=== PATIENT | female | born 1970 | race Two or more races ===

== ENCOUNTER 2019-01-04 22:44 | Emergency (ER) | payer MEDICAID ==
[~2019-01-04] VITALS: Ht 154.9 cm; Wt 88.0 kg
[~2019-01-04 22:44] MED LIST: METF-440 PO
[2019-01-04 23:59] VITALS: BP 92/53
--- NOTE | 2019-01-05 | NUR ---
PT BIBF. C/O "A DOOR FELL ON MY HEAD YESTERDAY, BEEN HAVING A HEADACHE SINCE THEN" -KO AOX4. AMBULATORY VSS. -SOB NOTED.
== END 2019-01-05 03:17 | disposition home or self-care (01) ==
LOC: ER 22:44
DX: M54.2 Cervicalgia (principal); R51 Headache; F17.200 Nicotine dependence, unspecified, uncomplicated; E11.9 Type 2 diabetes mellitus without complications; Z98.890 Other specified postprocedural states; Z88.0 Allergy status to penicillin
CPT/HCPCS: 70450-TC; 72125-TC

== ENCOUNTER 2019-08-12 15:12 | Emergency (ER) | payer MEDICAID ==
[~2019-08-12] VITALS: Ht 157.5 cm; Wt 81.6 kg
--- NOTE | 2019-08-12 15:18 | NUR ---
Pt bib self c/o vaginal bleeeding x 4 days s/p cervical biopsy 4 days ago, pt is aaox4, not in respiratory distress, hooked to monitor, kept rested and comfortable, will continue to monitor.
--- NOTE | 2019-08-12 15:28 | NUR ---
PT SEEN AND EXAMINED BY LINK ELIZABETH NP.
[2019-08-12] MEDS ORDERED: ONDANSETRON HCL/PF 4 MG/2 ML VIAL IVP ONE (15:30)
[2019-08-12] MEDS ORDERED: IV NS 0.9% 1,000 ML BAG IV ONE (15:30)
--- NOTE | 2019-08-12 15:42 | NUR ---
TECH AT BEDSIDE FOR US.
--- NOTE | 2019-08-12 16:00 | NUR ---
IV LINE ESTABLISHED, BLOOD DRAWN AND SENT TO LAB.
[2019-08-12] MEDS ORDERED: ONDANSETRON HCL/PF 4 MG/2 ML VIAL ONE (16:01)
[2019-08-12 16:03] LABS: BASOPHILS # (AUTO) 0.1 /CMM (0.0-0.2); BASOPHILS % (AUTO) 0.7 % (0.0-2.0); EOSINOPHILS % (AUTO) 4.5 % (0.0-6.0); HEMATOCRIT 41 % (33-45); HEMOGLOBIN 13.1 g/dL (11.5-14.8); LYMPHOCYTES # (AUTO) 2.8 /CMM (0.8-4.8); LYMPHOCYTES % (AUTO) 23.5 % (20.0-44.0); MEAN CORPUSCULAR HGB CONC 32 g/dl (31.0-36.0); MEAN CORPUSCULAR VOLUME 80 fL (82-100); MONOCYTES # (AUTO) 0.7 /CMM (0.1-1.30); MONOCYTES % (AUTO) 6.2 % (2.0-12.0); NEUTROPHILS # (AUTO) 7.8 /CMM (1.8-8.9); NEUTROPHILS % (AUTO) 65.1 % (43.0-81.0); PLATELET COUNT (AUTO) 333 /CMM (150-450); RED BLOOD CELL COUNT(AUTO) 5.11 MIL/uL (4.0-5.2)
[2019-08-12 16:07] LABS: APPEARANCE,URINE Clear (CLEAR); BILIRUBIN,URINE Negative (NEGATIVE); BLOOD, URINE Large Ery/uL (NEGATIVE); COLOR,URINE Yellow (YELLOW); KETONES,URINE Trace (NEGATIVE); LEUKOCYTE ESTERASE ,URINE Negative (NEGATIVE); NITRITE, URINE Negative (NEGATIVE); PH,URINE 5.5 (5.0-8.0); PROTEIN,URINE Trace mg/dl (NEGATIVE); UGLUCOSE Negative (NEGATIVE)
[2019-08-12 16:10] LABS: CALCIUM, SERUM 9.7 mg/dL (8.5-10.1); CREATININE 0.8 mg/dL (0.6-1.3); POTASSIUM 3.4 mmol/L (3.5-5.1)
[2019-08-12 16:34] LABS: BACTERIA,URINE Few /HPF (None Seen); SQUAMOUS EPITHELIAL CELL,UR Few /HPF (None Seen)
[2019-08-12 16:35] LABS: RBC,URINE 51-80 /HPF (0-2)
--- NOTE | 2019-08-12 16:38 | NUR ---
IV removed. Catheter intact and site benign. Pressure and 4x4 applied to site. No bleeding noted. Patient discharged to home in stable condition. Written and verbal after care instructions given. Patient verbalizes understanding of instruction.
[2019-08-12 16:39] VITALS: BP 122/68
== END 2019-08-12 17:08 | disposition home or self-care (01) ==
LOC: ER 15:16
DX: N93.8 Other specified abnormal uterine and vaginal bleeding (principal); R42 Dizziness and giddiness; E11.9 Type 2 diabetes mellitus without complications; Z87.42 Personal history of other diseases of the female genital tract; Z88.0 Allergy status to penicillin; Z79.899 Other long term (current) drug therapy
CPT/HCPCS: 36415; 76856; 80048; 81001; 84703; 85025; 85730; 96361; 96374; 99284; A6403; J2405; J7030; 81000-TC

== ENCOUNTER 2019-12-11 14:46 | Emergency (ER) | payer MEDICAID ==
[~2019-12-11] VITALS: Ht 152.4 cm; Wt 81.6 kg
[2019-12-11 14:57] VITALS: BP 133/84
[2019-12-11] MEDS ORDERED: IBUPROFEN 600 MG TABLET PO ONE ×2 (16:21→16:30)
--- NOTE | 2019-12-11 16:25 | NUR ---
RADIOLOGY AT BEDSIDE FOR LUMBAR SPINE XRAY.
== END 2019-12-11 17:37 | disposition home or self-care (01) ==
LOC: ER 14:50
DX: M54.5 Low back pain (principal); E11.9 Type 2 diabetes mellitus without complications; Z98.890 Other specified postprocedural states; Z88.0 Allergy status to penicillin; Z79.899 Other long term (current) drug therapy; V49.3XXA Car occupant (driver) (passenger) injured in unspecified nontraffic accident, initial encounter; Y93.89 Activity, other specified; Y92.488 Other paved roadways as the place of occurrence of the external cause; Y99.8 Other external cause status
CPT/HCPCS: 72110-TC

== ENCOUNTER 2020-06-24 14:41 | Emergency (ER) | payer MEDICAID ==
[~2020-06-24] VITALS: Ht 165.1 cm; Wt 78.5 kg
[2020-06-24 15:03] VITALS: BP 140/87
[2020-06-24] MEDS ORDERED: KETOROLAC TROMETHAMINE INJ 30 MG/ML VIAL ONE (15:09)
[2020-06-24] MEDS ORDERED: KETOROLAC TROMETHAMINE INJ 60 MG/2 ML VIAL IM ONE (15:30)
--- NOTE | 2020-06-24 15:32 | NUR ---
dPatient discharged to home in stable condition. Written and verbal after care instructions given. Patient verbalizes understanding of instruction.
== END 2020-06-24 15:32 | disposition home or self-care (01) ==
LOC: ER 14:50
DX: M54.2 Cervicalgia (principal); E11.9 Type 2 diabetes mellitus without complications; Z88.0 Allergy status to penicillin; Z79.84 Long term (current) use of oral hypoglycemic drugs
CPT/HCPCS: 96372; 99283; J1885

== ENCOUNTER 2020-10-03 14:16 | Emergency (ER) | payer MEDICAID ==
[~2020-10-03] VITALS: Ht 154.9 cm; Wt 80.7 kg
[2020-10-03 14:36] VITALS: BP 124/76
[2020-10-03] MEDS ORDERED: FLUORESCEIN SODIUM OPHTH 1 EA STRIP ONE (14:57)
[2020-10-03] MEDS ORDERED: CIPR5DRO EACHEYE (15:18)
--- NOTE | 2020-10-03 15:35 | NUR ---
Patient discharged to home in stable condition. Written and verbal after care instructions given. Patient verbalizes understanding of instruction. Pt ambulatory with a steady gait
[2020-10-03] MEDS: FLUORESCEIN SODIUM OPHTH 1 EA STRIP OP ONE (15:37)
== END 2020-10-03 15:58 | disposition home or self-care (01) ==
LOC: ER 14:18
DX: H57.13 Ocular pain, bilateral (principal); E11.9 Type 2 diabetes mellitus without complications; Z88.0 Allergy status to penicillin; Z79.84 Long term (current) use of oral hypoglycemic drugs; Z79.899 Other long term (current) drug therapy

== ENCOUNTER 2022-08-31 14:21 | Emergency (ER) | payer MEDICAID, OTHER ==
[~2022-08-31] VITALS: Ht 152.4 cm; Wt 81.6 kg
[~2022-08-31 14:21] MED LIST changes: +CIPR5DRO EACHEYE
--- NOTE | 2022-08-31 14:45 | NUR ---
RECEIVED PT 52 YRS JOSEPHINE WATING IN WATING ROOM FOR CHEST PAIN ON AND OFF FOR LONG TIME
--- NOTE | 2022-08-31 14:50 | NUR ---
SEEN BY DR. AREVALO
[2022-08-31 15:31] LABS: BASOPHILS # (AUTO) 0.1 K/uL (0.0-0.2); BASOPHILS % (AUTO) 0.6 % (0.0-2.0); EOSINOPHILS % (AUTO) 5.5 % (0.0-6.0); HEMATOCRIT 42 % (33-45); HEMOGLOBIN 13.6 g/dL (11.5-14.8); LYMPHOCYTES # (AUTO) 2.5 K/uL (0.8-4.8); LYMPHOCYTES % (AUTO) 25.3 % (20.0-44.0); MEAN CORPUSCULAR HGB CONC 33 g/dl (31.0-36.0); MEAN CORPUSCULAR VOLUME 85 fL (82-100); MONOCYTES # (AUTO) 0.5 K/uL (0.1-1.30); MONOCYTES % (AUTO) 5.4 % (2.0-12.0); NEUTROPHILS # (AUTO) 6.2 K/uL (1.8-8.9); NEUTROPHILS % (AUTO) 63.2 % (43.0-81.0); PLATELET COUNT (AUTO) 259 K/uL (150-450); RED BLOOD CELL COUNT(AUTO) 4.95 MIL/uL (4.0-5.2); WHITE BLOOD COUNT (AUTO) 9.8 K/uL (4.3-11.0)
[2022-08-31 15:42] LABS: CALCIUM, SERUM 9.5 mg/dL (8.5-10.1); CARBON DIOXIDE 29 mmol/L (21-32); CHLORIDE 103 mmol/L (98-107); CREATININE 0.7 mg/dL (0.6-1.3); GLUCOSE 148 mg/dL (74-106); POTASSIUM 3.7 mmol/L (3.5-5.1); SODIUM SERUM 139 mmol/L (136-145); UREA NITROGEN, BLOOD 11 mg/dL (7-18)
[2022-08-31] MEDS ORDERED: ASPIRIN 325 MG TABLET PO ONE (16:00)
[2022-08-31] MEDS ORDERED: NITROGLYCERIN 0.4 MG/TAB BOTTLE SL ONE (16:00)
--- NOTE | 2022-08-31 16:00 | NUR ---
blood drow for 2 nd troponion
[2022-08-31] MEDS ORDERED: ASPIRIN 325 MG TABLET ONE (16:55)
[2022-08-31] MEDS ORDERED: NITROGLYCERIN 0.4 MG/TAB BOTTLE ONE (16:55)
--- NOTE | 2022-08-31 17:57 | NUR ---
dineses chest pain
--- NOTE | 2022-08-31 18:20 | NUR ---
IV removed. Catheter intact and site benign. Pressure and 4x4 applied to site. No bleeding noted.
--- NOTE | 2022-08-31 18:28 | NUR ---
Patient discharged to home in stable condition. Written and verbal after care instructions given. Patient verbalizes understanding of instruction.
[2022-08-31 18:47] VITALS: BP 130/68
== END 2022-08-31 18:47 | disposition home or self-care (01) ==
LOC: ER 14:33
DX: R07.89 Other chest pain (principal); E11.9 Type 2 diabetes mellitus without complications; Z88.0 Allergy status to penicillin; Z79.84 Long term (current) use of oral hypoglycemic drugs; Z79.899 Other long term (current) drug therapy
CPT/HCPCS: 36415; 71045-TC; 80048-TC; 84484-TC; 85025-TC

== ENCOUNTER 2023-02-15 08:32 | Emergency (ER) | payer OTHER ==
[~2023-02-15] VITALS: Ht 154.9 cm; Wt 75.3 kg
[2023-02-15 08:40] VITALS: BP 130/84; TEMP 98.4
[2023-02-15] MEDS ORDERED: NEOM10DR11 LEFT EAR (08:44)
[2023-02-15 08:46] VITALS: O2SAT 98
== END 2023-02-15 08:47 | disposition home or self-care (01) ==
LOC: ER 08:35
DX: H60.331 Swimmer's ear, right ear (principal); E11.9 Type 2 diabetes mellitus without complications; Z79.899 Other long term (current) drug therapy; Z88.0 Allergy status to penicillin

== ENCOUNTER 2025-02-26 10:34 | Emergency (ER) | payer OTHER ==
[~2025-02-26] VITALS: Ht 154.9 cm; Wt 65.8 kg
[~2025-02-26 10:34] MED LIST changes: +NEOM10DR11 LEFT EAR
[2025-02-26 11:03] VITALS: BP 123/72; TEMP 98.3; O2SAT 98
== END 2025-02-26 11:06 | disposition home or self-care (01) ==
LOC: ER 10:39
DX: S09.90XA Unspecified injury of head, initial encounter (principal); E11.9 Type 2 diabetes mellitus without complications; Z79.84 Long term (current) use of oral hypoglycemic drugs; Z88.0 Allergy status to penicillin; W22.03XA Walked into furniture, initial encounter; Y93.89 Activity, other specified; Y92.89 Other specified places as the place of occurrence of the external cause; Y99.8 Other external cause status